=== PATIENT | male | born 1965 | race Caucasian/White ===

== ENCOUNTER 2016-11-24 09:21 | Emergency (ER) | payer OTHER ==
[~2016-11-24] VITALS: Ht 180.3 cm; Wt 114.5 kg
[~2016-11-24 09:21] MED LIST: AMLO2.5T PO; ASPI-973 PO; ATEN50TA PO; CETI-343 PO; CICL6.1H IH; CITA40TA13 PO; CLON0.1T PO; FAMO20TA4 PO; FLUT9.9S NS; ICAT30DI SQ; ISOS30TA4 PO; LEVA15HF5 IH; LEVO100T45 PO; LEVO100T6 PO; LIDOCAINE 4% INH; LORA1TAB PO; NITR0.4T SL; ONDA8TAB10 PO; TAMS0.4C98 PO; TIOT18CA3 IH
--- NOTE | 2016-11-24 09:25 | ED.REPORT ---
HPI-Chest Pain 40 and Over Date of Service Nov 24, 2016 ED Provider: Dr. Zach Bobby MD A 51 year old male with a history of hypertrophic cardiomyopathy, hypertension and hyperlipidemia presents to the ED via EMS complaining of chest pain that began this morning. Patient describes the pain as "harsh indigestion". Associated symptoms include dizziness, SOB and diffuse "flushing". Patient recorded his BP as 177/102 this morning. He rates his current pain as a 3/10 and the pain radiates to his back. Patient took Lisinopril before EMS arrival. Patient also reports some mild abdominal pain due to a hernia. Patient recently saw his business line manager on 11/15 for medication adjustment. Nursing Notes Stated Complaint: CHEST PAIN Nursing Notes Reviewed: Yes Allergies: Coded Allergies: Penicillins (Verified Allergy, Severe, Rash,Itching,SOB, 08/28/16) lisinopril (Verified Allergy, Severe, Anaphylaxis (ANGIOEDEMA), 09/05/16) losartan (Verified Allergy, Severe, Anaphylaxis (ANGIOEDEMA), 09/05/16) Scheduled Amlodipine (Amlodipine) 2.5 Mg Tablet 5 MG PO BID Aspirin (Aspirin) 81 Mg Tablet 81 MG PO DAILY Atenolol (Atenolol) 50 Mg Tablet 25 MG PO BID Cetirizine HCl (24Hour Allergy) 10 Mg Tablet 20 MG PO BID Ciclesonide ([place]) 6.1 Gm Hfa.aer.ad 2 PUFFS IH BID Citalopram (Citalopram) 40 Mg Tablet 80 MG PO DAILY Dexlansoprazole ER (Dexilant) 60 Mg Capsule 60 MG PO DAILY Fluticasone Propionate (Flonase Allergy Relief) 50 Mcg/Actuation [place].susp 9.9 ML NS DAILY Isosorbide MN ER (Isosorbide MN ER) 30 Mg Tab.er.24h 30 MG PO DAILY Levothyroxine (Levoxyl) 100 Mcg Tablet 100 MCG PO DAILY Levothyroxine (Levothyroxine) 100 Mcg Tablet 100 MCG PO DAILY Tiotropium [place] (Spiriva) 18 Mcg Cap.w.dev 18 MCG IH DAILY Scheduled PRN ([Lidocaine 4%]) 2.5 ML INH DIRECTED PRN PRN TREATMENT MUCOSAL SOLUTION Clonidine (Clonidine) 0.1 Mg Tablet 0.1 MG PO DAILY PRN PRN PRN Icatibant Acetate (Firazyr) 30 Mg/3 Ml Syringe 30 MG SQ Q6 PRN PRN angioedema Not to exceed 3 doses (90mg) in 24 hours. Levalbuterol Tartrate (Xopenex Hfa) 15 Gm Hfa.aer.ad 2-3 PUFF IH Q3-4H PRN PRN For Shortness of Breath Levalbuterol Tartrate (Xopenex Hfa) 15 Gm Hfa.aer.ad 2 PUFF IH Q6H PRN PRN For Shortness of Breath Lorazepam (Lorazepam) 1 Mg Tablet 1 MG PO TID PRN PRN For Anxiety Nitroglycerin SL (Nitrostat) 0.4 Mg Tab.subl 0.4 MG SL Q5MIN PRN PRN For Chest Pain If pain persists after 3 tablets in 15 min, prompt medical attention is recommended. Miscellaneous Medications Hydrochlorothiazide (Hydrochlorothiazide) 12.5 Mg Tablet General Time Seen by MD: 09:25 Chief Complaint Chest pain Hx Obtained From: Patient Arrived By: Ambulance Sudden in Onset?: Yes Onset Occurred: Just prior to arrival Symptom Duration: Since onset Location: : Chest left: Chest right Quality: Painful Radiation: : Back Migration/Movement: Reports: Chest to back Severity: Current: Pain level 3 out of 10 Severity: Maximum: Pain level 3 out of 10 Associated with: Reports: Dizziness, Shortness of Breath Additional Notes: Pt felt "flushed" Pertinent Negative: Pt denies other symptoms Recent Healthcare: No recent hospitalization, Recent doctor visit (11/15: Medical Transcription Supervisor ) Risk Factors )( CAD Risk Stratification Hyperlipidemia Hypertension Risk factors reviewed )( TAD Risk Stratification Hypertension Risk factors reviewed )( PE Risk Stratification Risk factors reviewed Past Medical History Past Medical History Notes: Medical Transcription Supervisor: Dr. 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 Physical Exam Initial Vital Signs Vital Signs (First) Date Time Temp Pulse Resp B/P Pulse Ox O2 Delivery O2 Flow Rate FiO2 11/24/16 09:26 36.7 90 10 176/65 98 Room Air Initial VS: Reviewed Head / Eyes: Atraumatic, Normocephalic, PERRL Extremities: Vascular intact, Neuro intact, No swelling, No tenderness Skin: Warm, Dry, No cyanosis Neurologic: Alert, Oriented, Nonfocal Psychiatric: Mood/affect normal, Behavior normal, Normal thought content General/Constitutional: Awake, Alert Distress / Hydration: Positive: Distress mild Respiratory / Chest: Atraumatic, Breath sounds NL, Breath sounds = bilat Cardiovascular: Heart rate NL, Regular rhythm, Heart sounds NL CARDIO: Hypertensive Abdomen: Atraumatic, Soft, Non-tender Interpretation & Diagnostics Lab Results Interpretation Result Diagram: 11/24/16 0927 11/24/16 0927 Test 11/24/16 09:27 11/24/16 11:55 White Blood Count 10.5th/mm3 (3.8-10.1) Red Blood Count 5.28mil/mm3 (4.40-5.80) Hemoglobin 15.3g/dL (13.8-17.2) Hematocrit 44.8% (41.0-50.0) Mean Corpuscular Volume 84.8fL (81-100) Mean Corpuscular Hemoglobin 29.0pg (27.0-35.0) Mean Corpuscular Hemoglobin Concent 34.2% (32.0-37.0) Red Cell Distribution Width 14.1% (12.3-15.4) Platelet Count 282bil/L (150-400) Neutrophils (%) (Auto) 37.3% (40-74) Lymphocytes (%) (Auto) 49.4% (14-46) Monocytes (%) (Auto) 10.6% (4-12) Eosinophils (%) (Auto) 2.2% (0-5) Basophils (%) (Auto) 0.3% (0-3) Sodium Level 140mEq/L (134-144) Potassium Level 3.2mEq/L (3.5-5.2) Chloride Level 99mEq/L (97-108) Carbon Dioxide Level 25mmol/L (18-29) Blood Urea Nitrogen 12mg/dL (6-24) Creatinine 0.68mg/dL (0.76-1.27) Estimat Glomerular Filtration Rate 131mL/min (>59) Glucose Level 115mg/dL (60-99) Calcium Level 8.7mg/dL (8.5-10.1) Magnesium Level 2.3mg/dL (1.6-2.6) Total Bilirubin 0.3mg/dL (0.0-1.2) Aspartate Amino Transf (AST/SGOT) 45U/L (0-50) Alanine Aminotransferase (ALT/SGPT) 61U/L (0-44) Alkaline Phosphatase 70U/L (25-150) Total Protein 7.6g/dL (6.4-8.4) Albumin 4.4g/dL (3.4-5.0) Troponin T 0.010ug/L (0.0-0.011) ECG Interpretation ECG Interpretation: Sinus Rhythm Rate 81 Incomplete Right Bundle Branch Block Signs of LVH QTC 508 Time: 09:46 Interpreted by: ED physician Normal ECG Interpretation: No change from prior ECGs (03/14/15) X-Ray Chest Interpretation Chest Xray Interpretation: IMPRESSION: No acute disease or interval change. Dictated by: Simeon Kent M.D. on 11/24/2016 at 10:38 Interpretation / Wet Read by: Interpret - Radiologist Re-Eval/Medical Decision Med Decision/Clinical Course Overall not consistent with acute coronary syndrome or pulmonary embolism, patient is feeling better and will be discharged. Refer to prior notes from cardiology and will increase his blood pressure meds as they had dictated. Return precautions given. Time of Eval: 10:01 Patient Status: Condition improved Re-Evaluation/Progress Note: Patient is rechecked. BP improved. Time of Eval: 11:24 Patient Status: Condition improved Re-Evaluation/Progress Note: Patient is rechecked. He is informed of the plan to repeat Troponin. Time of Eval: 12:57 Patient Status: Condition improved Re-Evaluation/Progress Note: Patient is rechecked. Chest pain is resolved. Patient passes the raod test. He is informed of his lab results and diagnosis. All of the patient's questions are addressed. He understands and agrees with the treatment plan. Counseled Regarding: Diagnosis, Lab results, Need for follow-up, When/why to return to ED Discharge & Departure Primary Impression: Chest pain Chest pain type: unspecified Qualified Code: R07.9 - Chest pain, unspecified Disposition: Home Discharge Condition All VS Reviewed: Yes Condition: Stable Patient Instructions: Chest Pain (ED) Additional Instructions: Overall there is no evidence that you are having a heart attack. Increase your doxazosin as prescribed by your doctor to 4 mg at night. Return for any recurrent chest pain. Call cardiology Saturday for a close follow-up appointment. Referrals: David Conrad MD (PCP) Scribe Attestation Portions of this note were transcribed by Juan Antonio Mondragon. I, Dr. Bobby personally performed the history, physical exam and medical decision-making; I reviewed and confirmed the accuracy of the information in the transcribed note. Signed by: Juan Antonio Mondragon, 11/24/16, [id number]. copies to: David Conrad MD, Timothy S DO Nov 24, 2016 09:25 JUAN ANTONIO MONDRAGON Nov 24, 2016 09:36
[2016-11-24 09:26] VITALS: BP 176/65; PULSE 90; RESP 10; O2SAT 98
[2016-11-24] MEDS ORDERED: Ondansetron 2 mg/mL 2 mL Inj IVPUSH ONE (09:30)
[2016-11-24] MEDS ORDERED: Nitroglycerin 2% 1 Gm Ointment TOPICAL ONE (09:30)
[2016-11-24] MEDS ORDERED: DEXL60CA5 PO (09:35)
[2016-11-24] MEDS ORDERED: HYDR12.55 (09:36)
[2016-11-24 09:43] LABS: BASOPHILS % (AUTO) 0.3 % (0-3); EOSINOPHILS % (AUTO) 2.2 % (0-5); MONOCYTES % (AUTO) 10.6 % (4-12); Mean Corpuscular Volume 84.8 fL (81-100); NEUTROPHILS % (AUTO) 37.3 % (40-74); Platelet Count 282 bil/L (150-400)
[2016-11-24 09:51] VITALS: BP 145/52; PULSE 79; RESP 13; O2SAT 96
[2016-11-24 09:58] VITALS: BP 148/54; PULSE 76; RESP 15; O2SAT 97
[2016-11-24 10:09] LABS: TROPONIN T 0.01 ug/L (0.0-0.011)
[2016-11-24 10:20] LABS: Magnesium 2.3 mg/dL (1.6-2.6)
[2016-11-24 10:28] VITALS: BP 203/83; PULSE 90; RESP 16; O2SAT 95
--- NOTE | 2016-11-24 10:40 | DRSVH ---
PROCEDURE: X-RAY CHEST ONE VIEW, PORTABLE ([id number]) INDICATIONS: CHEST PAIN TECHNIQUE: One view of the chest was acquired. COMPARISON: [facility], , CHEST 1VW (PORTABLE), 12/09/2014, 0:02. FINDINGS: Surgical changes and devices: Surgical clips again project at the base of the neck. Lungs and pleura: No pleural effusions or pneumothorax. Lungs are clear. Mediastinum: Mediastinal contours appear normal. Heart size is normal. Bones and chest wall: No suspicious bony lesions. Overlying soft tissues appear unremarkable. IMPRESSION: No acute disease or interval change. Dictated by: Simeon Kent M.D. on 11/24/2016 at 10:38 Approved by: Simeon Kent M.D. on 11/24/2016 at 10:38
[2016-11-24 11:44] VITALS: BP 131/58; PULSE 74; RESP 15; O2SAT 96
[2016-11-24 13:07] VITALS: BP 131/58; PULSE 74; RESP 15; O2SAT 96
== END 2016-11-24 13:08 | disposition home or self-care (01) ==
LOC: SED 09:21
DX: R07.9 Chest pain, unspecified (principal); I10 Essential (primary) hypertension; E78.5 Hyperlipidemia, unspecified; J45.909 Unspecified asthma, uncomplicated; Z79.82 Long term (current) use of aspirin; Z88.0 Allergy status to penicillin; Z88.8 Allergy status to other drugs, medicaments and biological substances
CPT/HCPCS: 71010; 80053; 83735; 84484; 85025; 93005; 96374; 96375; 99285; J2270; J2405